=== PATIENT | female | born 1960 | race Caucasian/White ===

== ENCOUNTER 2018-04-07 16:34 | Emergency (ER) | payer BC ==
[~2018-04-07] VITALS: Ht 165.1 cm; Wt 63.5 kg
[2018-04-07 16:36] VITALS: Ht 165.1 cm; Wt 63.5 kg
[2018-04-07 17:06] LABS: BASOPHIL % 0.7 % (0-2); PLATELET COUNT 238 x10^3mcL (130-400); RED CELL DISTRIBUTION WIDTH 13.6 % (11.5-14.5)
[2018-04-07 17:23] LABS: ALBUMIN 4.1 g/dL (3.4-5.0); ALKALINE PHOSPHATASE 64 U/L (46-116); ALT/SGPT 45 U/L (14-59); AST/SGOT 22 U/L (15-37); BILIRUBIN TOTAL 0.6 mg/dL (0.20-1.00); CALCIUM 9.1 mg/dL (8.5-10.1); CARBON DIOXIDE 24.6 mmol/L (21-32); CHLORIDE SERUM 104 mmol/L (98-107); CHOLESTEROL 137 mg/dL (<200); CHOLESTEROL/HDL RATIO 2.4; CREATININE SERUM 0.9 mg/dL (0.6-1.0); GFR1 > 60 mL/min; GLUCOSE SERUM 159 mg/dL (74-106); HDL CHOLESTEROL 57 mg/dL (40-60); LIPASE 287 IU/L (73-393); SODIUM SERUM 143 mmol/L (136-145); TOTAL PROTEIN, SERUM 8.2 g/dL (6.4-8.2); TRIGLYCERIDES 127 mg/dL (<150)
[2018-04-07 17:27] LABS: POTASSIUM SERUM 2.9 mmol/L (3.5-5.1)
[2018-04-07 17:32] LABS: T3 TOTAL 1.16 ng/mL
[2018-04-07 17:54] LABS: FREE T4 1.02 ng/dL (0.76-1.46)
[2018-04-07 17:55] LABS: FREE THYROXINE INDEX 0.7 ug/dL (1.4-4.5); T4(THYROXINE) 2.2 ug/dL (4.7-13.3)
[2018-04-07 19:04] VITALS: BP 122/70
== END 2018-04-07 19:04 | disposition home or self-care (01) ==
LOC: ED 16:34
PROVIDERS: Specialist
DX: F41.9 Anxiety disorder, unspecified (principal); E78.00 Pure hypercholesterolemia, unspecified
CPT/HCPCS: 83880; 84439; J7030; Q0092